=== PATIENT | male | born 1960 | race Caucasian/White ===

== ENCOUNTER → 2016-03-03 | Outpatient (CLI) | payer OTHER | LOC: CAT 10:35 | DX: Z13.6 Encounter for screening for cardiovascular disorders (principal) ==

== ENCOUNTER → 2020-03-05 | Outpatient (CLI) | payer OTHER | LOC: CAT 08:16 | PROVIDERS: ATTEND Family Medicine | DX: Z13.6 Encounter for screening for cardiovascular disorders (principal); I25.10 Atherosclerotic heart disease of native coronary artery without angina pectoris; E78.00 Pure hypercholesterolemia, unspecified ==

== ENCOUNTER → 2020-05-14 | Outpatient (CLI) | payer BC, OTHER ==
--- NOTE | 2020-05-14 10:47 | EXE ---
[facility] [place] [address] STRESS ECHOCARDIOGRAM Name: JANET DEL TORO Tania Room #: REG [facility]#: [id number] Admission: 05/14/20 Attend Phys: Milton Jett MD Discharge: Date of : 56 Report #: [id number] THIS REPORT FOR: cc: Milton Jett MD, Neal A. MD Lammoglia, Francisco J. MD ~ APPROVED REPORT Study performed: 05/14/2020 09:02:21 Exam: Stress Echocardiogram Indication: Elevated calcium score Patient Location: Out-Patient Stress Nurse: Gema Arce NP Ht: 5 ft 8 in HR: 61 bpm BP: 138/76 mmHg Medical History Cardiac Risk Factors: HTN, Hyperlipidemia Procedure The patient underwent an Exercise Stress Test using the Carlos Protocol. Blood pressure, heart rate, and EKG were monitored. An Echocardiogram was performed by electronic bench technician in four stages in quad fashion. At peak stress, four selected images were obtained and placed side by side with resting images for comparison. Stress Test Details Stress Test: Exercise stress testing was performed using a Carlos protocol. HR Resting HR: 61 bpm Max Heart Rate (APMHR): 159 bpm Max HR Achieved: 166 bpm Target HR (85% APMHR): 135 bpm % of APMHR: 104 Recovery HR: 99 bpm HR response to stress: Normal HR response to stress BP Resting BP: 138/76 mmHg Max BP: 200/86 mmHg Recovery BP: 138/70 mmHg BP response to stress: Normal blood pressure response to stress. [facility] [place] [address] STRESS ECHOCARDIOGRAM Name: JANET DEL TORO Room #: REG [id number] Admission: 05/14/20 Attend Phys: Milton Jett, Discharge: Date of : 56 Report #: [id number] Resting ECG: Sinus Rhythm Stress ECG: Sinus Tachycardia ST Change: Upsloping ST depression Recovery ECG: Sinus Rhythm Clinical Reason for Termination: Completed protocol Stress Symptoms: none Exercise duration: 9 min 32 sec Highest Stage Achieved: Stage 4: 4.2 mph at 16% grade. Exercise capacity: 11.80 METs Stress ECG Conclusion 1. Subjectively negative for ischemia 2. Electrocardiographically J-point depression with rapidly upsloping ST segments that did not fulfill criteria for ischemia 3. Satisfactory functional capacity 4. No exercise-induced dysrhythmias Pre-Stress Echo The resting Echocardiogram showed normal left ventricular contractility with an estimated Ejection Fraction of about 55-60%. The resting echocardiogram demonstrated normal wall motion in all wall segments. Post-Stress Echo The stress Echocardiogram showed normal left ventricular contractility with an estimated Ejection Fraction of about 65-70%. Compared to rest, there were no stress-induced wall motion abnormalities. Conclusion Clinical Response: Non-ischemic Exercise Capacity: Satisfactory Stress ECG Response: Non-ischemic Stress Echo Images: Non-ischemic 1. Low ischemic risk study 2. Parasternal short axis views off angle but interpretable 3. No exercise-induced wall motion abnormalities Other Information Study Quality: Good <Conclusion> 1. Low ischemic risk study [facility] [address] [place] [address] STRESS ECHOCARDIOGRAM Name: JANET DEL TORO Room #: REG Edwin#: [id number] Admission: 05/14/20 Attend Phys: Milton Jett, Discharge: Date of : 56 Report #: [id number] 2. Parasternal short axis views off angle but interpretable 3. No exercise-induced wall motion abnormalities <ELECTRONICALLY SIGNED> By: Jorge Chavez MD 05/14/20 [id number] Jorge Chavez MD /INF
== END ==
LOC: CV 08:45
PROVIDERS: ATTEND Family Medicine
DX: E78.5 Hyperlipidemia, unspecified (principal); E83.52 Hypercalcemia; F17.200 Nicotine dependence, unspecified, uncomplicated